=== PATIENT | male | born 1965 | race American Indian/Alaskan Native ===

== ENCOUNTER 2021-03-20 09:04 | Emergency (ER) | payer SELFPAY ==
[2021-03-20 09:10] VITALS: BP 122/67
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
[2021-03-20] MEDS ORDERED: IBUPROFEN 800 MG TAB PO STA (10:34)
[2021-03-20] MEDS ORDERED: ACETAMINOPHEN 500 MG TAB PO STA (10:34)
== END 2021-03-20 10:39 | disposition home or self-care (01) ==
LOC: ED 09:04
DX: M54.2 Cervicalgia (principal); M25.512 Pain in left shoulder; Z91.013 Allergy to seafood; V87.7XXA Person injured in collision between other specified motor vehicles (traffic), initial encounter; Y93.89 Activity, other specified; Y92.488 Other paved roadways as the place of occurrence of the external cause; Y99.8 Other external cause status
CPT/HCPCS: 99282

== ENCOUNTER 2021-05-25 21:32 | Observation (INO) | payer SELFPAY ==
[2021-05-25] MEDS ORDERED: ASPIRIN 325 MG TAB PO ONE (21:54)
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
--- NOTE | 2021-05-25 22:38 | Emergency Department Report ---
ED General Adult HPI - General Chief complaint: Pain General Stated complaint: LIGHT STROKE Time Seen by Provider: 05/25/21 22:30 Source: patient Mode of arrival: Ambulatory Limitations: No Limitations - History of Present Illness Initial comments: Patient is 56-year-old male with no significant past medical history. 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 Patient presented to the ER stating that he started having numbness and pain to the left neck, left arm and left ring and middle finger. Patient stated that the pain also go to his head. Patient stated that this started approximately 1 hour ago. He denied any shortness of breath, weakness numbness or tingling sensation. - Related Data Previous Rx's Medication Instructions Recorded Last Taken Type Naproxen 500 mg PO BID PRN #20 tablet 03/20/21 Unknown Rx methOCARBAMOL [Robaxin TAB] 750 - 1,500 mg PO Q8H PRN #24 03/20/21 Unknown Rx tablet Allergies Allergy/AdvReac Type Severity Reaction Status Date / Time shellfish derived Allergy Swelling Verified 05/25/21 21:40 ED Review of Systems ROS: Stated complaint: LIGHT STROKE Other details as noted in HPI Comment: All other systems reviewed and negative Constitutional: denies: chills, fever Respiratory: denies: cough, shortness of breath, SOB with exertion Cardiovascular: chest pain Gastrointestinal: denies: abdominal pain, nausea, vomiting, diarrhea, constipation, hematemesis, melena, hematochezia Musculoskeletal: denies: back pain Neurological: numbness. denies: headache, weakness, paresthesias, confusion, abnormal gait ED Past Medical Hx - Past Medical History Previous Medical History?: No - Surgical History Additional Surgical History: ABD SURGERY - Medications Home Medications: Home Medications Medication Instructions Recorded Confirmed Last Taken Type Naproxen 500 mg PO BID PRN #20 tablet 03/20/21 Unknown Rx methOCARBAMOL [Robaxin TAB] 750 - 1,500 mg PO Q8H PRN #24 03/20/21 Unknown Rx tablet ED Physical Exam - General Limitations: No Limitations General appearance: alert, in no apparent distress - Head Head exam: Present: atraumatic, normocephalic, normal inspection - ENT ENT exam: Present: normal exam, normal orophraynx, mucous membranes moist - Respiratory Respiratory exam: Present: normal lung sounds bilaterally - Cardiovascular Cardiovascular Exam: Present: regular rate, normal rhythm, normal heart sounds - GI/Abdominal GI/Abdominal exam: Present: soft, normal bowel sounds. Absent: distended, tenderness, guarding, rebound, rigid, organomegaly, mass, bruit, pulsatile mass - Extremities Exam Extremities exam: Present: normal inspection, full ROM, normal capillary refill. Absent: pedal edema, calf tenderness - Back Exam Back exam: Present: normal inspection, full ROM. Absent: CVA tenderness (R), CVA tenderness (L) - Neurological Exam Neurological exam: Present: alert, oriented X3, CN II-XII intact, normal gait, reflexes normal. Absent: motor sensory deficit - Psychiatric Psychiatric exam: Present: normal mood - Skin Skin exam: Present: warm, intact, normal color ED Course Vital Signs 05/25/21 21:36 Temperature 99.8 F H Pulse Rate 92 H Respiratory 18 Rate Blood Pressure 116/74 O2 Sat by Pulse 95 Oximetry - Reevaluation(s) Reevaluation #1: 05/26/21 00:[address] suite for CTA chest patient had a generalized tonic skye alem seizure witnessed by the mining technician. Patient immediately pulled back to the ER. Patient is alert, oriented x3 now and he stated that he never had any history of seizure before. Patient given Keppra 1 g and Ativan 1 mg. I ordered a CT head. ED Medical Decision Making - Lab Data Result diagrams: 05/25/21 22:28 05/25/21 22:28 - EKG Data -: EKG Interpreted by Me EKG shows normal: sinus rhythm Rate: normal - EKG Data Interpretation: no acute changes - Radiology Data Radiology results: report reviewed - Medical Decision Making Patient is 56-year-old male with no significant past medical history. 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 Patient presented to the ER stating that he started having numbness and pain to the left neck, left arm and left ring and middle finger. Patient stated that the pain also go to his head. Patient stated that this started approximately 1 hour ago. He denied any shortness of breath, weakness numbness or tingling sensation. EKG is unremarkable. Labs reviewed and is unremarkable except for slightly elevated D-dimer. While patient in the CT for CTA chest patient developed generalized tonic-clonic seizure. Patient denies any history of seizure before. Patient received Keppra 1 g IV and Ativan. Since then there is no other seizure episode. CTA chest is negative for acute finding and CT brain is negative for stroke. I discussed the patient with Dr. Multani, he agreed to admit the patient to medical service for further management. Critical Care Time: Yes Critical care time in (mins) excluding proc time.: 35 Critical care attestation.: If time is entered above; I have spent that time in minutes in the direct care of this critically ill patient, excluding procedure time. ED Disposition Clinical Impression: Acute chest pain, New onset seizure Disposition: 02 SHORT TERM HOSPITAL Is pt being admited?: Yes Condition: Stable Instructions: Chest Pain (ED) Referrals: PRIMARY CARE, [Primary Care Provider] - 3-5 Days
--- NOTE | 2021-05-25 22:42 | XRay Report ---
CHEST 2 VIEWS INDICATION / CLINICAL INFORMATION: chest pain. COMPARISON: None available. FINDINGS: SUPPORT DEVICES: None. HEART / MEDIASTINUM: No significant abnormality. LUNGS / PLEURA: No significant pulmonary or pleural abnormality. No pneumothorax. ADDITIONAL FINDINGS: No significant additional findings. IMPRESSION: 1. No acute findings. Signer Name: Redd Apple MD Signed: 05/25/2021 10:38 PM Workstation Name: [id number]
[2021-05-25 22:53] LABS: Hematocrit 46.7 % (35.5-45.6); Hemoglobin 15.2 gm/dl (11.8-15.2); Mean Corpuscular HGB Conc 33 % (32-34); Mean Corpuscular Volume 94 fl (84-94); Platelet Count 159 K/mm3 (140-440); Red Blood Count 4.97 M/mm3 (3.65-5.03); Red Cell Distribution Width 14.6 % (13.2-15.2)
[2021-05-25 23:09] LABS: Alanine Aminotransferase 28 units/L (7-56); Albumin 4.2 g/dL (3.9-5); BUN/Creatinine Ratio 14; Blood Urea Nitrogen 26 mg/dL (9-20); Calcium 8.8 mg/dL (8.4-10.2); Hemolysis Index 58
[2021-05-26] MEDS ORDERED: levETIRAcetam 1000 MG/NS 0.75% 1,000 MG/100 ML BAG IV ONE (00:22)
[2021-05-26] MEDS ORDERED: LORazepam 2 MG/ML VIAL IV ONE (00:22)
[2021-05-26 01:39] LABS: Total Cells Counted 100
[2021-05-26 01:40] LABS: Platelet Estimate Consistent w Auto; RBC Morphology Normal
--- NOTE | 2021-05-26 01:47 | Cat Scan Report ---
CT head/brain wo con INDICATION / CLINICAL INFORMATION: NEW SEIZURE. TECHNIQUE: Axial CT imaging of the brain was obtained without contrast. Coronal and sagittal reformatted imaging obtained and reviewed. All CT scans at this location are performed using CT dose reduction for ALAR A by means of automated exposure control. COMPARISON: None available. FINDINGS: No intracranial hemorrhage, mass, or midline shift is noted. No extra-axial fluid collection or sugge stion for acute territorial infarction. The ventricular system and basilar cisterns are unremarkable. Visualized paranasal sinuses and mastoid air cells are well aerated and clear. No calvarial fracture identified. No soft tissue abnormality. IMPRESSION: 1. No acute intracranial abnormality. Signer Name: Regla Gallegos MD Signed: 05/26/2021 1:42 AM Workstation Name: [id number]
--- NOTE | 2021-05-26 01:58 | Cat Scan Report ---
CTA CHEST WITH IV CONTRAST INDICATION / CLINICAL INFORMATION: Patient complains of chest pains and weakness. TECHNIQUE: Axial CT images were obtained through the chest after injection of 100 mL of Omnipaque 350 IV contras t. 3 plane MIP and/or 3D reconstructions were produced. All CT scans at this location are performed u sing CT dose reduction for ALARA by means of automated exposure control. COMPARISON: Chest radiograph 05/25/2021 FINDINGS: PULMONARY ARTERIES: No pulmonary emboli. THORACIC AORTA: No significant abnormality. HEART: No significant abnormality. CORONARY ARTERIES: No significant calcification. PLEURA: No pleural effusion. No pneumothorax. LYMPH NODES: No significant adenopathy. LUNGS: No acute air space or interstitial disease. ADDITIONAL FINDINGS: None. UPPER ABDOMEN: Small hiatal hernia. No acute finding. SKELETAL STRUCTURES: No significant osseous abnormality. IMPRESSION: 1. No CT evidence for pulmonary embolism. 2. No acute pulmonary disease. Signer Name: Regla Gallegos MD Signed: 05/26/2021 1:54 AM Workstation Name: [id number]
--- NOTE | 2021-05-26 08:45 | History and Physical Report ---
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 Patient stating that he started having numbness and pain to the left neck, left arm and left ring and mi ddle finger and radiates to his head. He denied any shortness of breath, weakness numbness or tingling sensation. EKG is unremarkable. Labs reviewed and is unremarkable except for slightly elevated D-dimer. While patient in the CT suite for CTA chest patient had a generalized tonic clonic seizure witnessed by the radiology physician assistant. Patient immediately pulled back to the ER. Patient is alert, oriented x3 now and he stated that he never had any history of seizure before. Patient given Keppra 1 g and Ativan 1 mg, ordered a CT head and called for admission. CTA chest is negative for acute finding and CT brain is negative for stroke. Patient does admit to taking cocaine in the last 48 hours. Review of System: Constitutional: no fever, no chills, no weight loss Ears, eyes, nose, mouth and throat: no nasal congestion, no nasal discharge, no sinus pressure, no vision change, no red eye. Neck: No neck pain or rigidity. Cardiovascular: + chest pain, no orthopnea, no palpitations, no leg swelling Respiratory: No shortness of breath, no cough, no congestion, no wheezing Gastrointestinal: no abdominal pain, no nausea, no vomiting Genitourinary : no dysuria, no hematuria Musculoskeletal: no joint swelling or muscle ache Integumentary: no rash, no pruritis Neurological: no parathesias, no numbness, no tingling Endocrine: no cold or heat intolerance, no polyuria or polydipsia Hematologic/Lymphatic: no easy bruising, no easy bleeding, no gland swelling Allergic/Immunologic: no urticaria, no angioedema. Past History Past Medical History: No medical history Past Surgical History: bowel surgery Social history: smoking, other (Cocaine abuse) Family history: hypertension, stroke Medications and Allergies Allergies Allergy/AdvReac Type Severity Reaction Status Date / Time shellfish derived Allergy Swelling Verified 05/26/21 09:24 Home Medications Medication Instructions Recorded Confirmed Last Taken Type Ascorbic Acid [Vitamin C] 1,000 mg PO QDAY 05/26/21 05/26/21 05/20/21 History Vitamin B Complex/Folic Acid 0.4 mg PO QDAY 05/26/21 05/26/21 05/20/21 History [B-Complex Tablet] Vitamin E Acetate [Vitamin E] 1,000 unit PO QDAY 05/26/21 05/26/21 05/20/21 History levETIRAcetam [Keppra TAB] 500 mg PO BID #60 tablet 05/27/21 Unknown Rx Exam - Physical Exam Narrative exam: GENERAL: well-developed and well-nourished -Iraqi male lying on bed appeared to be in no discomfort. HEENT: Normocephalic. Atraumatic. No conjunctival congestion or icterus. Patient has moist mucous membranes. NECK: Supple. Trachea midline. CHEST/LUNGS: Clear to auscultated bilaterally, breathing nonlabored. No wheezes crackles or rhonchi. HEART/CARDIOVASCULAR: Regular in rate and rhythm. S1 and S2 positive. ABDOMEN: Abdomen is soft, nontender. Patient has normal bowel sounds. SKIN: There is no rash. Warm and dry. NEURO: No focal motor deficit. Follows command. MUSCULOSKELETAL: No joint effusion or tenderness. EXTRIMITY: No edema, no cyanosis or clubbing. PSYCH: Cooperative. - Constitutional Vitals: Temp Pulse Resp BP Pulse Ox 99.8 F H 92 H 18 116/74 95 05/25/21 21:36 05/25/21 21:36 05/25/21 21:36 05/25/21 21:36 05/25/21 21:36 HEART Score - HEART Score Troponin: Troponin T < 0.010 ng/mL (0.00-0.029) 05/26/21 01:42 Results - Labs CBC & Chem 7: 05/25/21 22:28 05/27/21 13:24 Labs: Abnormal lab results 05/25/21 05/25/21 05/25/21 Range/Units 22:28 22:28 22:43 Hct 46.7 H (35.5-45.6) % Lymphocytes % (Manual) 48.0 H (13.4-35.0) % D-Dimer 359.83 H (0-234) ng/mlDDU BUN 26 H (9-20) mg/dL Creatinine 1.8 H (0.8-1.3) mg/dL - Imaging and Cardiology Chest x-ray: report reviewed (no acute finding) CT scan - chest: report reviewed (no acute PE) CT Scan - head: report reviewed (no acute process ) Assessment and Plan Acute chest pain, - will admit to telemetry bed - monitor with serial CE and EKG - will place on Aspirin, statin - as needed SL NTG and iv morphin for pain - Monitor BP, add betablocker and ACEI if BP tolerates - order 2D echo and stress test in the am - cardiac diet now, NPO after midnight New onset seizure -Initiate Keppra twice daily, consult neurology -Order EEG DOM, likely due to vasomotor nephropathy, continue IV fluid Tobacco abuse, counseled for cessation Cocaine abuse, order UDS and counseled for cessation - provide DVT Px with heparin
[2021-05-26] MEDS ORDERED: hydrALAZINE 20 MG/1 ML INJ IV PRN (08:46)
[2021-05-26] MEDS ORDERED: ONDANSETRON 4 MG/2 ML INJ IV PRN (08:46)
[2021-05-26] MEDS ORDERED: ACETAMINOPHEN 325 MG TAB PO PRN (08:46)
[2021-05-26] MEDS ORDERED: HYDROcodone/ACETAMINOPHEN 5-325 MG TAB PO PRN (08:46)
[2021-05-26 12:13] LABS: Amphetamine Screen,Urine Negative; Benzodiazepines Screen,Urine Negative; Cannabinoid Screen,Urine Negative; Methadone Screen,Urine Negative; Opiate Screen,Urine Negative
[2021-05-26 12:33] LABS: Cocaine Screen,Urine PRESUMPTIVE POSITIVE
--- NOTE | 2021-05-26 13:23 | Electrocardiograph Report ---
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
[2021-05-26] MEDS: HEPARIN 5,000 UNIT/1 ML VIAL SUB-Q SCH ×2 (14:47→22:57)
--- NOTE | 2021-05-26 15:50 | Consultation ---
History of Present Illness Consult date: 05/26/21 Chief complaint: Seizure History of present illness: Patient is 56-year-old male with no significant past medical history. 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 Patient presented to the ER stating that he started having numbness and pain to the left neck, left arm and left ring and middle finger. Patient stated that the pain also go to his head. Patient stated that this started approximately 1 hour ago. He denied any shortness of breath, weakness numbness or tingling sensation. EKG is unremarkable. Labs reviewed and is unremarkable except for slightly elevated D-dimer. While patient in the CT suite for CTA chest patient had a generalized tonic clonic seizure witnessed by the technical service rep. Patient immediately pulled back to the ER. Patient is alert, oriented x3 now and he stated that he never had any history of seizure before. Patient given Keppra 1 g and Ativan 1 mg, ordered a CT head and called for admission. CTA chest is negative for acute finding and CT brain is negative for stroke. The patient reports tingling in arm and leg , reports SALDIVAR .The patient had a event which occured while having CT. Medications and Allergies Allergies Allergy/AdvReac Type Severity Reaction Status Date / Time shellfish derived Allergy Swelling Verified 05/26/21 09:24 Home Medications Medication Instructions Recorded Confirmed Last Taken Type Ascorbic Acid [Vitamin C] 1,000 mg PO QDAY 05/26/21 05/26/21 05/20/21 History Vitamin B Complex/Folic Acid 0.4 mg PO QDAY 05/26/21 05/26/21 05/20/21 History [B-Complex Tablet] Vitamin E Acetate [Vitamin E] 1,000 unit PO QDAY 05/26/21 05/26/21 05/20/21 History Active Meds: Active Medications Acetaminophen (Acetaminophen 325 Mg Tab) 650 mg PO Q4H PRN PRN Reason: Pain MILD(1-3)/Fever >100.5/SALDVIAR Hydrocodone Bitart/Acetaminophen (Hydrocodone/Acetaminophen 5-325 Mg Tab) 2 each PO Q6H PRN PRN Reason: Pain, Moderate (4-6) Heparin Sodium (Porcine) (Heparin 5,000 Unit/1 Ml Vial) 5,000 unit SUB-Q Q8HR FEI Last Admin: 05/26/21 14:47 Dose: 5,000 unit Hydralazine HCl (Hydralazine 20 Mg/1 Ml Inj) 5 mg IV Q30MIN PRN PRN Reason: Hypertension Ondansetron HCl (Ondansetron 4 Mg/2 Ml Inj) 4 mg IV Q8H PRN PRN Reason: N/V unrelieved by Reglan Physical Examination - Vital Signs Vital Signs: Vital Signs Temp Pulse Resp BP Pulse Ox 99.8 F H 92 H 18 116/74 95 05/25/21 21:36 05/25/21 21:36 05/25/21 21:36 05/25/21 21:36 05/25/21 21:36 - Physical Exam Narrative exam: The patient is alert , moves all 4 extremity . Results - Laboratory Findings CBC and BMP: 05/25/21 22:28 05/25/21 22:28 Abnormal Lab Findings: Abnormal Labs 05/25/21 05/25/21 05/25/21 22:28 22:28 22:43 Hct 46.7 H Lymphocytes % (Manual) 48.0 H D-Dimer 359.83 H BUN 26 H Creatinine 1.8 H Assessment and Plan 1. Seizure / ( Seminology ? Seizure/ ? TIA . This is a complex issue- the patient needs a workup . 2. Driving issues - if there is loss of conciouness no driving for 6 months . 3. EEG . 4. Needs a out patient Neurology Follow up . 5. Agree with Seizure Medications for now . Dr. Flowers
[2021-05-26] MEDS ORDERED: SODIUM CHLORIDE 0.9% 1000 ML 1,000 ML IV SCH (18:30)
[2021-05-26] MEDS: levETIRAcetam 500 MG TAB PO SCH (22:57)
[2021-05-27] MEDS: HEPARIN 5,000 UNIT/1 ML VIAL SUB-Q SCH ×2 (05:13→14:59)
[2021-05-27] MEDS ORDERED: ASPIRIN EC 325 MG TAB PO SCH (10:00)
[2021-05-27] MEDS: levETIRAcetam 500 MG TAB PO SCH (10:06)
--- NOTE | 2021-05-27 12:20 | Consultation ---
History of Present Illness Consult date: 05/27/21 Requesting physician: SEVERO NAGEL Consult reason: chest pain History of present illness: Patient is a 56-year-old male with past medical history of cocaine use who reported to [facility] on 05/25/2020 for complaint of numbness on the left side of his neck arm and fingers that started that day while he was driving. Patient states that he continues to have the numbness and tingling. While patient was going for CTA patient had generalized tonic-clonic seizure witnessed by tech and reported some chest pain. Patient has denied any history of seizure and states he does not recall loss of consciousness during the incident. However he does state that he recalls having some nausea and a slight twinge of pain located left side of his ribs under his arm. At time of interview patient denies chest pain, shortness of breath, nausea, vomiting, or palpitations. Patient is previously unknown to our practice. Cardiology was consulted for chest pain Past History Past Medical History: No medical history Past Surgical History: bowel surgery Social history: smoking, other (Cocaine abuse) Family history: hypertension, stroke Medications and Allergies Allergies Allergy/AdvReac Type Severity Reaction Status Date / Time shellfish derived Allergy Swelling Verified 05/26/21 09:24 Home Medications Medication Instructions Recorded Confirmed Last Taken Type Ascorbic Acid [Vitamin C] 1,000 mg PO QDAY 05/26/21 05/26/21 05/20/21 History Vitamin B Complex/Folic Acid 0.4 mg PO QDAY 05/26/21 05/26/21 05/20/21 History [B-Complex Tablet] Vitamin E Acetate [Vitamin E] 1,000 unit PO QDAY 05/26/21 05/26/21 05/20/21 History Active Meds: Active Medications Acetaminophen (Acetaminophen 325 Mg Tab) 650 mg PO Q4H PRN PRN Reason: Pain MILD(1-3)/Fever >100.5/SALDIVAR Hydrocodone Bitart/Acetaminophen (Hydrocodone/Acetaminophen 5-325 Mg Tab) 2 e ach PO Q6H PRN PRN Reason: Pain, Moderate (4-6) Aspirin (Aspirin Ec 325 Mg Tab) 325 mg PO QDAY [facility] Last Admin: 05/27/21 10:06 Dose: 325 mg Atorvastatin Calcium (Atorvastatin 40 Mg Tab) 40 mg PO QHS [facility] Last Admin: 05/26/21 22:57 Dose: 40 mg Heparin Sodium (Porcine) (Heparin 5,000 Unit/1 Ml Vial) 5,000 unit SUB-Q Q8HR [facility] Last Admin: 05/27/21 05:13 Dose: 5,000 unit Hydralazine HCl (Hydralazine 20 Mg/1 Ml Inj) 5 mg IV Q30MIN PRN PRN Reason: Hypertension Sodium Chloride (Nacl 0.9% 1000 Ml) 1,000 mls @ 100 mls/hr IV DIRECT [facility] Levetiracetam (Levetiracetam 500 Mg Tab) 500 mg PO BID [facility] Last Admin: 05/27/21 10:06 Dose: 500 mg Ondansetron HCl (Ondansetron 4 Mg/2 Ml Inj) 4 mg IV Q8H PRN PRN Reason: N/V unrelieved by Reglan Review of Systems Constitutional: no weight loss, no weight gain, no fever, no chills Ears, nose, mouth and throat: no nose pain, no nasal congestion, no nasal discharge, no sinus pressure, no sinus pain Cardiovascular: no chest pain, no orthopnea, no palpitations, no shortness of breath, no dyspnea on exertion Respiratory: no cough, no cough with sputum, no shortness of breath, no dyspnea on exertion Gastrointestinal: no abdominal pain, no nausea, no vomiting, no diarrhea Musculoskeletal: arm numbness/tingling Integumentary: no rash, no pruritis, no redness Neurological: numbness, tingling, no transient paralysis, no paralysis, no weakness Psychiatric: no anxiety, no memory loss Endocrine: no cold intolerance, no heat intolerance Hematologic/Lymphatic: no easy bruising, no easy bleeding Physical Examination Vital Signs Temp Pulse Resp BP Pulse Ox 99.8 F H 92 H 18 116/74 95 05/25/21 21:36 05/25/21 21:36 05/25/21 21:36 05/25/21 21:36 05/25/21 21:36 General appearance: no acute distress HEENT: Positive: PERRL Neck: Positive: trachea midline Cardiac: Positive: Reg Rate and Rhythm Lungs: Positive: Normal Breath Sounds Neuro: Positive: Grossly Intact Abdomen: Positive: Soft, Active Bowel Sounds Skin: Negative: Rash, Suspicious Lesions, Ulceration Extremities: Present: upper extr. pulses. Absent: edema Results 05/25/21 22:28 05/25/21 22:28 - Imaging and Cardiology Echo: report reviewed EKG: report reviewed, image reviewed EKG interpretations - Telemetry EKG Rhythm: Sinus Rhythm - EKG Sinus rhythms and dysrhythmias: sinus rhythm Assessment and Plan Patient is a 56-year-old male with past medical history of cocaine use who reported to [facility] on 05/25/2020 for complaint of numbness on the left side of his neck arm and fingers that started that day while he was driving Seizures DOM Chest pain Cocaine use Echo 05/26/2021-EF 50 to 55%, mild diastolic dysfunction is present impaired relaxation pattern. Right ventricular systolic function is normal. Left and right atrium are normal in size. Trace tricuspid regurgitation. Mild pulmonic regurgitation Plan: EKG shows normal sinus rhythm 78 with no acute ischemic changes. Troponins negative x2. Patient currently chest pain-free. AMI ruled out Patient symptoms does not appear to be of cardiac origin and most likely related to new onset seizure Patient had normal echo, normal EKG, negative troponins, and denies any cardiac symptoms No beta-arturo due to cocaine use Cardiac status stable for discharge. We will sign off Patient seen in conjunction with Dr. Patterson who agrees with this plan of care - Patient Problems (1) DOM (acute kidney injury) Current Visit: Yes Status: Acute (2) Cocaine abuse Current Visit: Yes Status: Acute (3) Acute chest pain Current Visit: Yes Status: Acute (4) New onset seizure Current Visit: Yes Status: Acute
[2021-05-27 14:02] LABS: BUN/Creatinine Ratio 14; Blood Urea Nitrogen 20 mg/dL (9-20); Calcium 8.4 mg/dL (8.4-10.2); Hemolysis Index 23
--- NOTE | 2021-05-27 16:23 | Discharge Summary ---
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 Patient stating that he started having numbness and pain to the left neck, left arm and left ring and middle finger and radiates to his head. He denied any shortness of breath, weakness numbness or tingling sensation. EKG is unremarkable. Labs reviewed and is unremarkable except for slightly elevated D-dimer. While patient in the CT suite for CTA chest patient had a generalized tonic clonic seizure witnessed by the radiology asst. Patient immediately pulled back to the ER. Patient is alert, oriented x3 now and he stated that he never had any history of seizure before. Patient given Keppra 1 g and Ativan 1 mg, ordered a CT head and called for admission. CTA chest is negative for acute finding and CT brain is negative for stroke. Patient does admit to taking cocaine in the last 48 hours. Patient UDS was positive for cocaine, cardiac enzymes were normal. 2D echo obtained and showed normal ejection fraction. Patient was further evaluated by cardiology and neurology. Cardiology recommended outpatient follow-up for possible ischemic work-up. Neurology recommended to continue AED for now and avoid driving for 6 months and outpatient follow-up with neurologist. Discharge plan and management was thoroughly discussed with the patient and he verbalized understanding. Patient was then discharged home in stable condition with outpatient follow-up. Disposition: HOME / SELF CARE / HOMELESS Final Discharge Diagnosis (Prints w/discharge instructions): --Atypical chest pain, likely cocaine induced. --Acute seizure. --tobacco abuse. --cocaine abuse Time spent for discharge: 34 minutes Core Measure Documentation - Palliative Care Palliative Care/ Comfort Measures: Not Applicable - Core Measures Any of the following diagnoses?: none Exam - Physical Exam Narrative exam: GENERAL: well-developed and well-nourished -Congolese male lying on bed appeared to be in no discomfort. HEENT: Normocephalic. Atraumatic. No conjunctival congestion or icterus. Patient has moist mucous membranes. NECK: Supple. Trachea midline. CHEST/LUNGS: Clear to auscultated bilaterally, breathing nonlabored. No wheezes crackles or rhonchi. HEART/CARDIOVASCULAR: Regular in rate and rhythm. S1 and S2 positive. ABDOMEN: Abdomen is soft, nontender. Patient has normal bowel sounds. SKIN: There is no rash. Warm and dry. NEURO: No focal motor deficit. Follows command. MUSCULOSKELETAL: No joint effusion or tenderness. EXTRIMITY: No edema, no cyanosis or clubbing. PSYCH: Cooperative. - Constitutional Vitals: Temp Pulse Resp BP Pulse Ox 98.5 F 76 18 107/62 95 05/27/21 11:40 05/27/21 11:40 05/27/21 11:40 05/27/21 11:40 05/27/21 11:40 Plan Activity: advance as tolerated, no driving until cleared by PCP Weight Bearing Status: Weight Bear as Tolerated Diet: low fat, low salt Additional Instructions: f/u with neurologist in one week for outpt EEG. F/u with rotoformer backtender for outpt ischemic work up Follow up with: PRIMARY MD SULEMA [Primary Care Provider] - 3-5 Days RANDY DAVIS MD [Staff Physician] - 7 Days Prescriptions: levETIRAcetam [Keppra TAB] 500 mg PO BID #60 tablet
[2021-05-27 16:59] VITALS: BP 104/65
[2021-05-28] MEDS ORDERED: FOLIC ACID/VIT B COMP W-C 1 MG (RENAL CAPS) PO SCH (10:00)
[2021-05-28] MEDS ORDERED: VITAMIN E ACETATE PO SCH (10:00)
[2021-05-28] MEDS ORDERED: FOLIC ACID PO SCH (10:00)
[2021-05-28] MEDS ORDERED: NON-FORMULARY EACH (Ascorbic Acid [Vitamin C] 1,000 MG Tablet) PO SCH (10:00)
[2021-05-28] MEDS ORDERED: ASCORBIC ACID 500 MG TAB PO SCH (10:00)
[2021-05-28] MEDS ORDERED: VITAMIN B COMPLEX PO SCH (10:00)
--- NOTE | 2021-05-28 13:06 | Electrocardiograph Report ---
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
== END 2021-05-27 18:33 | disposition home or self-care (01) ==
LOC: ED 21:32 → 4A 05-26 03:52
PROVIDERS: ADMIT Internal Medicine Geriatric Medicine; ATTEND Internal Medicine
DX: R07.89 Other chest pain (principal); N17.9 Acute kidney failure, unspecified; R56.9 Unspecified convulsions; F14.10 Cocaine abuse, uncomplicated; F17.210 Nicotine dependence, cigarettes, uncomplicated; Z79.899 Other long term (current) drug therapy; Z98.890 Other specified postprocedural states
CPT/HCPCS: 36415; 70450; 71046; 71275; 80048; 80053; 80307; 84484; 85025; 85379; 93005; 93306; 96361; 96365; 96372; 96375; 99291; 99406; G0378; J1644; J1953; J2060; J7030; Q9967; 85007; Q0162